=== PATIENT | male | born 1980 | race Two or more races ===

== ENCOUNTER → 2024-09-20 | Outpatient (CLI) | payer OTHER ==
--- NOTE | 2024-09-20 09:50 | DVH ---
CT ABDOMEN AND PELVIS WITHOUT CONTRAST CLINICAL HISTORY: CALCIFIED LIVER MASS TECHNIQUE: Multiple contiguous axial images of the abdomen and pelvis without intravenous contrast. T he images were reformatted degenerate coronal and sagittal reconstructions. All CT scans at this medical facility are performed using dose modulation techniques as appropriate t o a performed exam including the following:Automated exposure control was utilized; adjustment of the MA and/or KV according to patient size; and use of iterative reconstruction technique. Radiation Dose Information: CT Dose: CTDI volume is 8.3 mGy. Dose-length product is 453.35 mGy*cm Comparison: None FINDINGS: Evaluation of the abdomen and pelvis is limited without intravenous contrast. There are 3 lesions in the liver which are mostly calcified. The largest is in the right hepatic lobe near the gallbladder fossa measuring 4.2 cm. There is an additional lesion near the gallbladder dewey a measuring 2.1 cm. There is a 3.7 cm lesion in the dome of the liver. There is no intrahepatic bilia ry ductal dilatation. The gallbladder, pancreas, kidneys, adrenal glands, and spleen appear within normal limits. There is no gross evidence of abdominal lymphadenopathy. There is no free fluid or free air. The stomach grossly appears unremarkable. The small and large bowel loops demonstrate normal caliber and distribution. The appendix is not seen in the right lower quadrant abdomen. There are no seconda ry signs of acute appendicitis. The abdominal aorta and IVC appear within normal limits. The bladder appears unremarkable for the degree of distention. Pelvic organ appears within normal zaragoza its. There is no gross evidence of a pelvic mass. There is no free fluid collection. Lung bases are clear. There is no acute osseous abnormality. IMPRESSION: 1. There are 3 nonspecific, mostly calcified lesions in the liver, the largest in the right hepatic l obe measuring 4.2 cm. Comparison with any available prior CT studies is recommended as well as furthe r evaluation with multiphase MRI abdomen with contrast. HS:Y
== END | disposition home or self-care (01) ==
LOC: XYW 08:02
DX: K76.89 Other specified diseases of liver (principal); R16.0 Hepatomegaly, not elsewhere classified
CPT/HCPCS: 74176